=== PATIENT | male | born 1970 | race Caucasian/White ===

== ENCOUNTER 2017-05-19 19:52 | Emergency (ER) | payer OTHER ==
[~2017-05-19] VITALS: Ht 182.9 cm; Wt 79.4 kg
[2017-05-19] MEDS ORDERED: NKM (20:00)
[2017-05-19 20:07] VITALS: BP 110/58
--- NOTE | 2017-05-19 20:20 | Emergency Room Report ---
History of Present Illness General Chief Complaint: Multiple Trauma/Fall Source: Patient Present Illness HPI [id number] walk-in with pain when he extends his right elbow after fell to ground jumping over wall putting out Halloween decorations No pain at rest, only at lateral elbow when extending joint Denies pain to right shoulder, upper arm, forearm, wrist, hand Didnt take any OTC meds at home Denies pain meds here Allergies: Coded Allergies: No Known Allergies (Unverified , 05/19/17) Patient History Past Medical History: none Past Surgical History: none Pertinent Family History: none Social History: Denies: smoking, alcohol use, drug use Immunizations: UTD Reviewed Nursing Documentation: PMH: Agreed, PSxH: Agreed Nursing Documentation-PMH Past Medical History: No Stated History Review of Systems All Other Systems: negative except mentioned in HPI Physical Exam Vital Signs Date Time Temp Pulse Resp B/P (MAP) Pulse Ox O2 Delivery O2 Flow Rate FiO2 05/19/17 19:57 97.5 76 16 110/58 100 Sp02 EP Interpretation: reviewed, normal General Appearance: normal inspection, well appearing, no apparent distress, alert, GCS 15, non-toxic Head: normocephalic, atraumatic ENT: normal ENT inspection, hearing grossly normal, normal voice Neck: normal inspection, full range of motion, supple, no bony tend Respiratory: normal inspection, lungs clear, normal breath sounds, no respiratory distress, no retraction, no wheezing Cardiovascular #1: regular rate, rhythm, no edema Gastrointestinal: normal inspection, normal bowel sounds, non tender, soft, no guarding, no hernia Genitourinary: no CVA tenderness Musculoskeletal: normal inspection, back normal, normal range of motion, Musa' s Sign negative, other - Right elbow: no obvious deformity, mild soft tissue swelling. No palpable ttp to elbow, forearm, wrist/hand. Nerves intact. pain to right elbow when supinating/pronating Neurologic: normal inspection, alert, responsive, speech normal Psychiatric: normal inspection, judgement/insight normal, mood/affect normal Skin: normal inspection, normal color, no rash Procedures Splinting Splinting : Consent: Verbal Splint: posterior long - right elbow Pre-Proc Neuro Vasc Exam: normal Post-Proc Neuro Vasc Exam: normal Patient Tolerated: Well Complications: None Medical Decision Making Diagnostic Impression: Primary Impression: Fall Qualified Codes: W19.XXXA - Unspecified fall, initial encounter Additional Impression: Elbow pain, right ER Course Right elbow pain s/p slip and fall Reduced ROM to right elbow ?small chip fx to right olecranon Posterior splint applied Patient refused analgesia Ortho followup DC home Other X-Ray Diagnostic Results Other X-Ray Diagnostic Results : X-Ray ordered: Right elbow # of Views/Limited Vs Complete: 3 View Indication: Pain EP Interpretation: Yes Interpretation: no dislocation, no soft tissue swelling, other - Chip fx of ulna olecranon Electronically Signed by: Dr Royal Young MD Last Vital Signs Date Time Temp Pulse Resp B/P (MAP) Pulse Ox O2 Delivery O2 Flow Rate FiO2 05/19/17 20:07 97.5 16 110/58 100 05/19/17 19:57 76 Status: improved Disposition: HOME, SELF-CARE ROYAL YOUNG M.D. May 19, 2017 20:20
[2017-05-19 21:15] VITALS: BP 110/58
--- NOTE | 2017-05-20 10:51 | Diagnostic Imaging Report ---
Indications:PAIN, status post fall Technique: Three or 4 views of the right elbow Comparison: None Findings:No definite acute fractures no dislocations. There is questionably visualization of the posterior fat pad, suggesting small joint effusion. 2 curvilinear ossific densities are seen posterior to the olecranon, probably represent small detached osteophytes. Impression:Small attached olecranon osteophytes, acuity attachment indeterminate aerated correlate with clinical findings Equivocal minimal joint effusion, occult fracture not completely excludable.. Consider followup radiographs in 7-10 days
== END 2017-05-19 21:45 | disposition home or self-care (01) ==
LOC: EMR 21:31
DX: M25.521 Pain in right elbow (principal); W19.XXXA Unspecified fall, initial encounter; Y92.89 Other specified places as the place of occurrence of the external cause
CPT/HCPCS: 29105; 99283